=== PATIENT | female | born 1980 | race Caucasian/White ===

== ENCOUNTER 2018-01-17 18:38 | Emergency (ER) | payer MEDICAID, OTHER ==
[2018-01-17 18:45] VITALS: BP 124/80; PULSE 91; RESP 16; TEMP 98.3; O2SAT 98
[2018-01-17] MEDS ORDERED: Tdap Vaccine 0.5 ml Vial (10-64 yrs) IM ONE ×2 (18:49→19:44)
[2018-01-17] MEDS ORDERED: Lidocaine/Epi 1% 1:100000 20 ML IJ STA (19:29)
[2018-01-17] MEDS ORDERED: Lidocaine 1% w Epi 1:100,000 Inj ONE (19:30)
--- NOTE | 2018-01-17 19:40 | ED PDOC ---
HPI: Skin/Bite Injury Time Seen by Provider: 01/17/18 18:49 Chief Complaint (Nursing): Abnormal Skin Integrity Chief Complaint (Provider): Abnormal Skin Integrity History Per: Patient History/Exam Limitations: no limitations Onset/Duration Of Symptoms: Days (x1) Current Symptoms Are (Timing): Still Present Additional Complaint(s): 37 year old presents to the emergency department with a complaint of left upper arm laceration sustained from walking into her medicine cabinet around 0400 earlier today. Denied any pain or recent tetanus shot. Patient stated she cleaned area with peroxide and covered with band-aids. LMP: 12/26/17 PMD: Shakeel Lobo MD Past Medical History Reviewed: Historical Data, Nursing Documentation, Vital Signs Vital Signs: Last Vital Signs Temp 98.3 F 01/17/18 18:42 Pulse 91 H 01/17/18 18:42 Resp 16 01/17/18 18:42 BP 124/80 01/17/18 18:42 Pulse Ox 98 01/17/18 20:28 - Medical History PMH: No Chronic Diseases - Surgical History Other surgeries: ankle - Family History Family History: States: Unknown Family Hx - Social History Current smoker - smoking cessation education provided: Yes Alcohol: None Drugs: Denies - Immunization History Hx Tetanus Toxoid Vaccination: No - Allergies Allergies/Adverse Reactions: Allergies Allergy/AdvReac Type Severity Reaction Status Date / Time No Known Allergies Allergy Verified 01/17/18 18:42 Review of Systems ROS Statement: Except As Marked, All Systems Reviewed And Found Negative Musculoskeletal: Positive for: Other (left upper arm laceration). Negative for : Arm Pain (left-sided) Physical Exam - Reviewed Nursing Documentation Reviewed: Yes Vital Signs Reviewed: Yes - Physical Exam Appears: Positive for: Well, Non-toxic, No Acute Distress Extremity: Positive for: Normal ROM (left arm), Other (1.5cm ventral aspect of left upper arm superficial laceration with surrounding ecchymosis). Negative for: Deformity (left arm) Neurologic/Psych: Positive for: Alert, Oriented. Negative for: Motor/Sensory Deficits - ECG O2 Sat by Pulse Oximetry: 98 (RA) Pulse Ox Interpretation: Normal Medical Decision Making Medical Decision Making: Initial Impression: Left upper arm laceration Initial Plan: * Adacel 0.5ml IM Time: 1999 --Laceration repair of left upper arm. See procedure note. Time: 2022 --Upon provider reevaluation patient is medically stable and requires no further treatment in the ED at this time. Patient will be discharged home. Counseling was provided and all questions were answered regarding diagnosis and need for follow up with PMD. There is agreement to discharge plan. Return if symptoms persist or worsen. Clinical Impression: Laceration of the upper arm without complication Scribe Attestation: Documented by Jessica Davis, acting as a scribe for Cristina Thomas PA-C. Provider Scribe Attestation: All medical record entries made by the Scribe were at my direction and personally dictated by me. I have reviewed the chart and agree that the record accurately reflects my personal performance of the history, physical exam, medical decision making, and the department course for this patient. I have also personally directed, reviewed, and agree with the discharge instructions and disposition. Disposition - Clinical Impression Clinical Impression: Laceration of upper arm without complication - Patient ED Disposition Is Patient to be Admitted: No Counseled Patient/Family Regarding: Diagnosis, Need For Followup - Disposition Referrals: Shakeel Lobo [Medical Doctor] - Disposition: Routine/Home Disposition Time: 20:23 Condition: IMPROVED Instructions: Wound Care Forms: [employer] (Slovenian) Print Language: [place] ISLANDER Procedures - Time-Out Type of Procedure: laceration repair Site of Procedure: left arm Correct Patient (with visual ID + MR# on ID Band): Yes Correct Procedure: Yes Correct Site Marked: Yes X-Ray Marked: No Medication Reconciliation / Bloodwork / Allergies Checked: Yes PA/Tech: Martha - Laceration/Wound Repair Left Upper Arm Wound Length (cm): 1.5 Wound's Depth, Shape: superficial, linear Wound Explored: clean Irrigated w/ Saline (ccs): 30 Betadine Prep?: No Wound Debrided: minimal Wound Repaired With: Steri-strips Wound Complexity: Simple Sterile Dressing Applied?: No Splint Applied?: No Sling Applied?: No
== END 2018-01-17 20:29 | disposition home or self-care (01) ==
LOC: H.ER 18:38
DX: S41.112A Laceration without foreign body of left upper arm, initial encounter (principal); W26.8XXA Contact with other sharp object(s), not elsewhere classified, initial encounter; Y92.89 Other specified places as the place of occurrence of the external cause

== ENCOUNTER 2018-09-26 16:24 | Emergency (ER) | payer OTHER ==
[2018-09-26 16:24] VITALS: BMI 31.0
[2018-09-26] MEDS ORDERED: Sodium Chloride 0.9% 1,000 ML IV STA (18:01)
--- NOTE | 2018-09-26 18:09 | ED PDOC ---
HPI: Abdomen Time Seen by Provider: 09/26/18 17:39 Chief Complaint (Nursing): Abdominal Pain Chief Complaint (Provider): Left flank pain History Per: Patient History/Exam Limitations: no limitations Onset/Duration Of Symptoms: Days (5) Additional Complaint(s): Pt. with left flank pain going to the left lower. Constant. No nausea, vomit, diarrhea. No weakness. Has dysuria and odorous urine. No chest pain. Feels like her previous uti. Has stone in left kidney as well. Past Medical History Reviewed: Nursing Documentation, Vital Signs Vital Signs: Last Vital Signs Temp 98.7 F 09/26/18 16:54 Pulse 94 H 09/26/18 16:54 Resp 16 09/26/18 16:54 BP 110/69 09/26/18 16:54 Pulse Ox 99 09/26/18 16:54 - Medical History PMH: Denies: Chronic Kidney Disease Other PMH: kidney stones - Surgical History Surgical History: No Surg Hx - Family History Family History: States: Unknown Family Hx - Living Arrangements Living Arrangements: With Family - Immunization History Hx Tetanus Toxoid Vaccination: No - Home Medications Home Medications: Ambulatory Orders Medication Instructions Recorded Ciprofloxacin/Ciprofloxa HCl 500 mg PO Q12 #14 tab 09/26/18 [Ciprofloxacin] - Allergies Allergies/Adverse Reactions: Allergies Allergy/AdvReac Type Severity Reaction Status Date / Time No Known Allergies Allergy Verified 01/17/18 18:42 Review of Systems ROS Statement: Except As Marked, All Systems Reviewed And Found Negative Gastrointestinal: Positive for: Abdominal Pain Genitourinary Female: Positive for: Dysuria Musculoskeletal: Positive for: Back Pain Physical Exam - Reviewed Nursing Documentation Reviewed: Yes Vital Signs Reviewed: Yes - Physical Exam Appears: Positive for: Non-toxic, No Acute Distress Head Exam: Positive for: ATRAUMATIC, NORMAL INSPECTION, NORMOCEPHALIC Skin: Positive for: Normal Color, Warm, DRY Eye Exam: Positive for: EOMI, Normal appearance, PERRL ENT: Positive for: Normal ENT Inspection Neck: Positive for: Normal, Painless ROM Cardiovascular/Chest: Positive for: Regular Rate, Rhythm Respiratory: Positive for: CNT, Normal Breath Sounds Gastrointestinal/Abdominal: Positive for: Soft, Tenderness (L abd) Back: Positive for: L CVA Tenderness. Negative for: R CVA Tenderness Extremity: Positive for: Normal ROM. Negative for: Tenderness Neurologic/Psych: Positive for: Alert, Oriented - Laboratory Results Result Diagrams: 09/26/18 18:15 09/26/18 18:15 - ECG O2 Sat by Pulse Oximetry: 99 Pulse Ox Interpretation: Normal - Progress ED Course And Treament: 2355: Dr. Aldridge to fu on ct. Disposition - Clinical Impression Clinical Impression: Pyelonephritis - Patient ED Disposition Is Patient to be Admitted: Transfer of Care - Disposition Disposition Time: 17:40 Condition: STABLE Prescriptions: Ciprofloxacin/Ciprofloxa HCl [Ciprofloxacin] 500 mg PO Q12 #14 tab Instructions: Urinary Tract Infections in Adults Forms: [facility] (Panamanian)
[2018-09-26 18:24] LABS: BASO # 0.1 K/uL (0.0-0.2); BASO % 1.1 % (0.0-2.0); EOS # 0.1 K/uL (0.0-0.7); EOS % 1.3 % (0.0-4.0); HEMOGLOBIN 11.8 g/dL (12.0-16.0); LYMPH # 5.1 K/uL (1.0-4.3); LYMPH % 51.3 % (20.0-40.0); MEAN CELL VOLUME 78.2 fl (81.0-99.0); MEAN CORPUSCULAR HEMOGLOBIN 25.3 pg (27.0-31.0); MEAN CORPUSCULAR HGB CONC 32.4 g/dL (33.0-37.0); MEAN PLATELET VOLUME 9.7 fl (7.2-11.7); MONO # 0.9 K/uL (0.0-0.8); MONO % 9.2 % (0.0-10.0); NEUT # 3.7 K/uL (1.8-7.0); NEUT % 37.1 % (50.0-75.0); NRBC % 0.1 % (0.0-0.0); RBC 4.67 Mil/uL (3.80-5.20); RED CELL DISTRIBUTION WIDTH 13.9 % (11.5-14.5)
[2018-09-26 18:33] LABS: SQUAMOUS EPITHIAL 25 /hpf (0-5); URINE AMORPHOUS SEDIMENT RARE /ul (<OCC); URINE BACTERIA MANY (<OCC); URINE BILIRUBIN NEGATIVE (NEGATIVE); URINE BLOOD SMALL (NEGATIVE); URINE CLARITY CLOUDY (Clear); URINE COLOR YELLOW (YELLOW); URINE GLUCOSE (UA) NEG (Normal); URINE LEUKOCYTE ESTERASE LARGE Leu/uL (Negative); URINE PROTEIN 30 mg/dL (NEGATIVE)
[2018-09-26 19:04] LABS: ALB/GLOB RATIO 0.9 (1.0-2.1); ALBUMIN 3.3 g/dL (3.5-5.0); ALT/SGPT 56 U/L (9-52); AST/SGOT 44 U/L (14-36); BLOOD UREA NITROGEN 6 mg/dl (7-17); CALCIUM 8.8 mg/dL (8.4-10.2); GFR NON-AFRICAN AMERICAN > 60
[2018-09-26] MEDS ORDERED: cefTRIAXone (Rocephin) 1 gm Inj IV ONE (19:11)
[2018-09-26] MEDS ORDERED: cefTRIAXone 1 gm/NS 100ML IVPB ONE (19:15)
--- NOTE | 2018-09-26 19:22 | ED PDOC ---
- Laboratory Results Result Diagrams: 09/26/18 18:15 09/26/18 18:15 - ECG O2 Sat by Pulse Oximetry: 99 (RA) Pulse Ox Interpretation: Normal Medical Decision Making Medical Decision Making: Time: 19:00 Patient was endorsed to me by Dr. Castro pending CT and reevaluation. CT Abd/Pelvis: CLINICAL HISTORY: Flank pain, rule out stone. TECHNIQUE: Multiple axial, coronal, sagittal CT images were obtained through the abdomen and pelvis without administration of oral or IV contrast material. Total DLP equals 671.87 mGy.cm. COMMENTS: The liver appears enlarged and measures 22 cm in length without mass or defect. There is no intra or extrahepatic biliary ductal dilatation. The spleen is normal. The gallbladder is contracted. The pancreas is of normal contour and attenuation characteristics. There is no evidence of adrenal mass. The kidneys are normal in size, shape, and configuration. There is no hydroureter or hydronephrosis. Note is made of a 1.3 x 0.6 cm, non-obstructing calculus in mid pole of the left kidney. There is a ventral wall fat-containing hernia present with neck measures 10 mm. The hernia sac measures approximately 4 x 2.5 cm. There is no evidence for appendicitis. Fluid-filled, thick-walled loops of jejunum and ileum are present consistent with enteritis. No evidence for small or large bowel obstruction. There is no evidence of abdominal ascites or lymphadenopathy. There is no evidence of intrinsic or extrinsic bladder mass. There is no pelvic ascites or lymphadenopathy. The uterus and ovaries are grossly normal. Bibasilar atelectasis is seen. There are no pleural effusions. The bony structures are free of lytic or blastic lesions. IMPRESSION: 1. Hepatomegaly. 2. Contracted gallbladder. 3. Non-obstructing left renal calculus. 4. Ventral wall fat-containing hernia. 5. Enteritis. 21:50 Patient reports improvement in symptoms. IV Rocephin given. Upon provider evaluation, patient is medically stable for discharge home with prescription for Cipro, - Scribe Attestation: Documented by, Danette Crockett acting as a scribe for Martin Aldridge MD. Provider Scribe Attestation: All medical record entries made by the Scribe were at my direction and personall y dictated by me. I have reviewed the chart and agree that the record accurately reflects my personal performance of the history, physical exam, medical decision making, and the department course for this patient. I have also personally directed, reviewed, and agree with the discharge instructions and disposition. Disposition - Clinical Impression Clinical Impression: Pyelonephritis - POA Present On Arrival: None - Disposition Disposition: Routine/Home Disposition Time: 21:55 Condition: STABLE Prescriptions: Ciprofloxacin/Ciprofloxa HCl [Ciprofloxacin] 500 mg PO Q12 #14 tab Instructions: Urinary Tract Infections in Adults Forms: [facility] (Serbian)
[2018-09-26] MEDS ORDERED: cefTRIAXone (Rocephin) 1 gm Inj ONE (21:50)
[2018-09-26 23:05] VITALS: BP 116/72; PULSE 88; RESP 18; TEMP 98.2
--- NOTE | 2018-09-27 09:51 | CT ---
Date of service: 09/26/2018 PROCEDURE: CT Abdomen and Pelvis without intravenous contrast HISTORY: R/O stone COMPARISON: None. TECHNIQUE: Technique. Contrast dose: Radiation dose: Total exam DLP = 671.87 mGy-cm. This CT exam was performed using one or more of the following dose reduction techniques: Automated exposure control, adjustment of the mA and/or kV according to patient size, and/or use of iterative reconstruction technique. FINDINGS: LOWER THORAX: Unremarkable. LIVER: Unremarkable. No gross lesion or ductal dilatation. GALLBLADDER AND BILE DUCTS: Unremarkable. PANCREAS: Unremarkable. No gross lesion or ductal dilatation. SPLEEN: Unremarkable. ADRENALS: Unremarkable. No mass. KIDNEYS AND URETERS: Nonobstructive left renal calculus measuring roughly 15 millimeters. VASCULATURE: Unremarkable. No aortic aneurysm. No aortic atherosclerotic calcification or mural plaque present. BOWEL: Unremarkable. No obstruction. No gross mural thickening. APPENDIX: Unremarkable. Normal appendix. PERITONEUM: Unremarkable. No free fluid. No free air. LYMPH NODES: Unremarkable. No enlarged lymph nodes. BLADDER: Unremarkable. REPRODUCTIVE: Unremarkable. BONES: No acute fracture. OTHER FINDINGS: Ventral abdominal wall hernia containing omental fat. IMPRESSION: Left renal stone. Ventral abdominal wall hernia.
[2018-09-27 20:03] VITALS: O2SAT 99
== END 2018-09-26 23:05 | disposition home or self-care (01) ==
LOC: H.ER 16:24
DX: N12 Tubulo-interstitial nephritis, not specified as acute or chronic (principal); N20.0 Calculus of kidney; K43.9 Ventral hernia without obstruction or gangrene; K52.9 Noninfective gastroenteritis and colitis, unspecified
CPT/HCPCS: 74176; 80053; 81003; 81025; 85025; 87086; 87181; 96374; 99284; J0696; J1885; J7030